=== PATIENT | female | born 1995 | race Two or more races ===

== ENCOUNTER 2025-10-20 12:14 | Emergency (ER) | payer SELFPAY ==
[~2025-10-20] VITALS: Ht 167.6 cm; Wt 73.0 kg
[2025-10-20 12:42] VITALS: TEMP 98
[2025-10-20] MEDS: IV NS 0.9% 1,000 ML BAG IV ONE (13:00)
[2025-10-20] MEDS ORDERED: ONDANSETRON HCL/PF 4 MG/2 ML VIAL ONE (13:02)
[2025-10-20] MEDS: ONDANSETRON HCL/PF 4 MG/2 ML VIAL IVP ONE (13:10)
[2025-10-20 13:14] LABS: PLATELET COUNT (AUTO) 374 K/uL (150-450); RED BLOOD CELL COUNT(AUTO) 5.22 MIL/uL (4.0-5.2); RED CELL DISTRIBUTION WIDTH 12.6 % (11.5-15.0); WHITE BLOOD COUNT (AUTO) 9.9 K/uL (4.3-11.0)
[2025-10-20] MEDS ORDERED: KETOROLAC TROMETHAMINE 15 MG/ML VIAL ONE (13:14)
[2025-10-20] MEDS: KETOROLAC TROMETHAMINE 15 MG/ML VIAL IV ONE (13:17)
[2025-10-20 13:31] LABS: CALCIUM, SERUM 9.4 mg/dL (8.5-10.1); CREATININE 0.7 mg/dL (0.6-1.3); SODIUM SERUM 142.0 mmol/L (136-145); UREA NITROGEN, BLOOD 8.0 mg/dL (7-18)
[2025-10-20 13:37] LABS: ASPARTATE AMINOTRANSFERASE 12.0 U/L (15-37); TOTAL PROTEIN, SERUM 8.7 g/dL (6.4-8.2)
[2025-10-20 15:26] LABS: APPEARANCE,URINE CLEAR (CLEAR); BLOOD, URINE 3+ Ery/uL (NEGATIVE); LEUKOCYTE ESTERASE ,URINE NEGATIVE (NEGATIVE); NITRITE, URINE NEGATIVE (NEGATIVE); UGLUCOSE NEGATIVE (NEGATIVE)
[2025-10-20 15:30] LABS: ADD URINE CULTURE NO; PREGNANCY TEST URINE QUAL NEGATIVE (NEGATIVE); SQUAMOUS EPITHELIAL CELL,UR Few /HPF (None Seen)
[2025-10-20] MEDS ORDERED: IBUP-1490 PO (19:36)
[2025-10-20] MEDS ORDERED: TAMS-12 PO (19:36)
[2025-10-20 19:52] VITALS: BP 125/85; O2SAT 98
== END 2025-10-20 19:51 | disposition home or self-care (01) ==
LOC: ER 12:23
DX: R10.32 Left lower quadrant pain (principal); R11.0 Nausea; Z87.442 Personal history of urinary calculi
CPT/HCPCS: 99285; 74176; 96374; 76856; 96361; 96375; 85025; 80048; 83690; 80076; 84703; 81001; 36415; J1885; J2405; J7030